=== PATIENT | female | born 1975 | race Caucasian/White ===

== ENCOUNTER → 2017-03-31 | Outpatient (CLI) | payer OTHER | LOC: RAD 12:28 | DX: M54.5 Low back pain (principal); M54.31 Sciatica, right side; M47.896 Other spondylosis, lumbar region | CPT/HCPCS: 72100 ==

== ENCOUNTER 2021-02-17 17:44 | Emergency (ER) | payer OTHER ==
[2021-02-17] MEDS ORDERED: CEPHALEXIN500 M1 PO (21:17)
== END 2021-02-17 22:10 | disposition home or self-care (01) ==
LOC: ER1 17:44
DX: S91.202A Unspecified open wound of left great toe with damage to nail, initial encounter (principal); Z79.899 Other long term (current) drug therapy; W22.8XXA Striking against or struck by other objects, initial encounter; Y92.009 Unspecified place in unspecified non-institutional (private) residence as the place of occurrence of the external cause; Z23 Encounter for immunization
CPT/HCPCS: 73630; 90471; 90714; 99283